=== PATIENT | male | born 1960 | race Caucasian/White ===

== ENCOUNTER → 2020-08-28 | Outpatient (CLI) | payer OTHER | LOC: RAD 13:02 | PROVIDERS: ATTEND Family Medicine | DX: M17.12 Unilateral primary osteoarthritis, left knee (principal) ==

== ENCOUNTER → 2020-11-19 | Outpatient (CLI) | payer OTHER ==
[~2020-11-19] MED LIST: ALIVE ONCE DAI1 EACH PO; ASA81BEC PO; CELEXA10 MG PO; CULTURELLE PRO1 EACH PO; GINGER500 MG PO; LISINOPRIL20 MG PO; MELATONIN10 M3 PO; MOVE FREE ULTR1 EAC1 PO; OMEGA 3 500 SO1 EACH PO; VITAMIN C500 M1 PO; ZOCOR 20 MG TAB20 M1 PO; [UNRECOGNIZED DRUG - OTHER] PO
[2020-11-19 12:40] LABS: URINE BILIRUBIN NEGATIVE (Negative); URINE BLOOD NEGATIVE (Negative); URINE CLARITY CLEAR; URINE COLOR YELLOW; URINE GLUCOSE-RANDOM* NEGATIVE (Negative); URINE KETONES NEGATIVE (Negative); URINE LEUKOCYTES-REFLEX TRACE (Negative); URINE NITRITE-REFLEX NEGATIVE (Negative); URINE PROTEIN (DIPSTICK) NEGATIVE (Negative); URINE SPECIFIC GRAVITY 1.015 (1.005-1.035)
[2020-11-19 12:43] LABS: HEMATOCRIT 45.7 % (42.0-52.0); MCH 31.6 pg (26.0-34.0); MCHC 32.8 g/dL (28.0-37.0); MCV 96.2 fL (80.0-100.0); RBC 4.75 mil/uL (4.50-6.00); RDW 12.5 % (10.5-14.5); WBC 5.3 thou/uL (4.0-11.0)
[2020-11-19 12:45] LABS: ALBUMIN 4.5 g/dL (3.4-5.0); CALCIUM 9.3 mg/dL (8.5-10.1); POTASSIUM 3.9 mmol/L (3.5-5.1)
[2020-11-19 12:49] LABS: PROTIME 10.4 Seconds (9.3-11.4)
--- NOTE | 2020-11-19 13:53 | EKG ---
[place] [address] [facility] [place] [address] ELECTROCARDIOGRAM REPORT Name: CLARITA BALL Room #: DARELL Lamas#: [id number] Admission: 11/19/20 Attend Phys: Dawson Aguero MD Discharge: Date of : 62 Report #: [id number] [facility] Test Date: 2020-11-19 Test Time: 12:34:00 Pat Name: CLARITA BALL Department: Room: Gender: Paint Specialist: CYNDI : 1960 Requested By: Dawson Aguero Order Number: [id number] MD: Milton Bush Measurements Intervals [place] Rate: 85 P: 51 LA: 167 QRS: -26 QRSD: 96 T: 67 QT: 366 QTc: 436 Interpretive Statements Sinus rhythm Borderline left axis deviation Abnormal R-wave progression, early transition No previous ECG available for comparison Electronically Signed On 11-19-2020 13:52:55 [employer] by Milton Bush [email or web address] <ELECTRONICALLY SIGNED> By: Milton Bush MD, [facility] 11/19/20 1352 1234 1234 Milton Bush MD, FACC /EPI
== END ==
LOC: LAB 07:24
PROVIDERS: ATTEND Orthopaedic Surgery
DX: Z01.812 Encounter for preprocedural laboratory examination (principal); Z20.822 Contact with and (suspected) exposure to COVID-19; I49.9 Cardiac arrhythmia, unspecified; I44.4 Left anterior fascicular block

== ENCOUNTER 2020-11-25 07:19 | Inpatient (IN) | payer OTHER ==
[~2020-11-25] VITALS: Ht 175.3 cm; Wt 80.7 kg
--- NOTE | ~2020-11-25 | D ---
[facility] [place] [address] DISCHARGE SUMMARY Name: CLARITA BALL Room #: 442-P [facility] IN M.R.#: [id number] Admission: 11/25/20 Attend Phys: Dawson Aguero MD Discharge: Date of : 62 Report #: [id number] THIS REPORT FOR: cc: Avi Brunner James A. DO Clymer, David J. MD ~ DATE OF SERVICE: 11/27/2020 FINAL DIAGNOSIS: End-stage degenerative arthritis, left knee. OPERATION PROCEDURES: Left total knee arthroplasty. HISTORY OF PRESENT ILLNESS: This fit and generally active 60-year-old gentleman presents with progressive severe knee pain. Clinical exam and x-rays confirm end-stage degenerative arthritis of the left knee. He has elected to go ahead with total knee replacement. HOSPITAL COURSE: The patient was admitted and taken to the operating room and underwent left total knee replacement. He tolerated this quite nicely. Postoperatively, his pain was well controlled with IV analgesics and then oral analgesics. He was able to resume a regular diet without difficulty. He was started on anticoagulation regimen. He was started on physical therapy and has made a good initial progress. He is comfortable up to a chair and is walking with a walker and will work with therapy again today for additional ambulation and steps. He was initially mildly hypotensive and tachycardic. His blood pressure medications have been held. He is still a bit tachycardic, but his blood pressure is normal. He is completely asymptomatic in this regard. His hemoglobin is low at 8.1. The dressing is dry and there was no significant bleeding, so I expect this will stabilize and rebound. The patient notes he is anxious to go home and hoping for discharge today. He will be participating with physical therapy for 2 more sessions today, pending good performance and clearance from physical therapy. I am anticipating discharge home later this afternoon. DISCHARGE MEDICATIONS: Include Xarelto 10 mg daily, hydrocodone 10 mg q.4-6 hours p.r.n. for pain, lisinopril 20 mg b.i.d., Celexa 10 mg at bedtime, Zocor 20 mg at bedtime, vitamin C 500 mg daily, multivitamins once daily, melatonin 10 mg at bedtime. He is instructed to call me if there are any problems or questions. He will continue with the gentle activity program at home as instructed by physical therapy. I will plan to see him back in my office in 1 week and we will begin outpatient therapy at that time. By: 0842 [id number] Dawson Aguero MD /nt
[2020-11-25 08:13] VITALS: BP 151/93
[2020-11-25 12:54] VITALS: BP 98/67
[2020-11-25 12:55] VITALS: BP 98/67
--- NOTE | 2020-11-25 14:53 | NUR ---
PT CARE ASSUMED AT 1240 FROM THE OR. A&Ox4. POST OP VITALS STABLE. PT/OT/RT ON BOARD. ON BEDREST UNTIL PT CAN SEE PT DUE TO FEMORAL BLOCK. IV PATENT WITH NO REDNESS OR EDEMA, FLUIDS INFUSING. HEMOVAC L.KNEE DRAINING WELL. INES DRESSING DRY AND INTACT. ICE PACK IN PLACE. TEDHOSES ON. PT HAS NOT VOIDED YET. ADMISSION COMPLEETED. FALL PROTOCOL IN PLACE. PT EXPERIENCED AN EPISODE OF NAUSEA NO VOMITTING, ZOFRAN GIVEN AND COOL WASHCLOTH APPLIED TO FORHEAD. NAUSEA RESOLVED. TOLERTED CLEAR LIQUIDS AND ADVANCED TO HEAR HEALTHY DIET. CALL LIGHT IN REACH. WILL CONTINUE TO MONITOR.
[2020-11-25 15:27] VITALS: BP 91/53
[2020-11-25 19:08] VITALS: BP 93/62
--- NOTE | 2020-11-26 04:00 | NUR ---
ASSESSMENT COMPLETED.PT LEFT KNEE WITH INES DRSG INTACT, ICE GODFREY APPLIED. PT UNABLE TO VOID THRO NIGHT. BLADDER SCAN AT 0500 WITH A RESIDUAL OF GREATER THAN 900. INDWELLING CATHETER PLACED-IMMEDIATE 900 CC OBTAINED. BP REMAINS ON THE SOFTER SIDE. PT IS ASYMPTOMATIC. DENIES NAUSEA OR VOMITING.CALLS WITH NEEDS.
[2020-11-26 04:18] VITALS: BP 86/53
[2020-11-26 04:31] LABS: CALCIUM 7.5 mg/dL (8.5-10.1); CREATININE 1.5 mg/dL (0.7-1.3); MAGNESIUM 1.9 mg/dL (1.8-2.4); POTASSIUM 4.6 mmol/L (3.5-5.1)
[2020-11-26 05:21] LABS: ABSOLUTE NEUTROPHILS 9.3 thou/uL (1.4-8.2); BASOPHILS 0.1 % (0.0-2.0); HEMATOCRIT 30.7 % (42.0-52.0); HEMOGLOBIN 10.3 gm/dL (14.0-18.0); LYMPHOCYTES 7.6 % (24.0-44.0); MCH 32.5 pg (26.0-34.0); MCHC 33.5 g/dL (28.0-37.0); MCV 97.2 fL (80.0-100.0); MONOCYTES 8.2 % (1.0-8.0); PLATELET COUNT 202 thou/uL (150-400); POLYS 84.1 % (36.0-66.0); RBC 3.16 mil/uL (4.50-6.00); RDW 12.5 % (10.5-14.5)
--- NOTE | 2020-11-26 08:10 | O ---
[facility] [place] [address] OPERATIVE REPORT Name: CLARITA BALL Room #: 442-P [facility] IN M.R.#: [id number] Admission: 11/25/20 Attend Phys: Dawson Aguero MD Discharge: Date of : 62 Report #: [id number] THIS REPORT FOR: cc: Avi Brunner James A. DO Clymer, David J. MD ~ DATE OF SERVICE: 11/25/2020 PREOPERATIVE DIAGNOSIS: End-stage degenerative arthritis, left knee. POSTOPERATIVE DIAGNOSIS: End-stage degenerative arthritis, left knee. PROCEDURE: Left total knee arthroplasty. SURGEON: Dawson Aguero M.D. INDICATIONS: This 60-year-old gentleman presents with chronic progressive left knee pain. His history, clinical exam, x-rays and MRI study revealed moderate degenerative change, particularly in the medial compartment with significant damage to the medial meniscus as well as an area of osteochondral bone infarct. We have discussed various treatment measures. He feels he is not able to function and work effectively and his knee symptoms are limiting both his daily activities and work. He has difficulty with steps, kneeling or squatting or any prolonged walking. He feels his symptoms are becoming worse with time. He has elected therefore to go ahead with left total knee replacement. DESCRIPTION OF PROCEDURE: The patient was taken to the operating room where he was placed under general anesthesia. Prophylactic intravenous antibiotics were administered. The left knee and leg were meticulously prepped and draped and a thigh tourniquet inflated to 300 mmHg. An anterior longitudinal skin incision was made. The medial retinaculum was opened and the patella reflected laterally. Rather severe degenerative change of the medial compartment and moderate degenerative change at the patella/lateral compartment were noted. The [employer] and [employer] knee system was utilized. Intramedullary guides were used on both the femur and the tibia. The femur seemed best suited for a size 5 press fit femoral component. The tibial side was also best suited for a size 5 tibial component. The patellar surface was resected and a 35 mm patellar button seemed to fit nicely. Appropriate anchor holes were created. A trial reduction was performed and the knee seemed best suited for a 9 mm polyethylene insert. With the trial components in place, the knee demonstrated full knee extension, excellent flexion and satisfactory stability. The patella seemed to track nicely and appears to be stable. The trial components were removed. The surfaces were thoroughly irrigated and dried. The intramedullary canal was blocked with a bone block on both the [address] [address] OPERATIVE REPORT Name: CLARITA BALL Room #: 442-P [facility] IN .R.#: [id number] Admission: 11/25/20 Attend Phys: Dawson Aguero MD Discharge: Date of : 62 Report #: [id number] femoral and tibial sides. Methyl methacrylate cement was mixed and injected into the porous surface of the proximal tibia. The [employer] size 5 tibial baseplate was then inserted. It was impacted into position and seated nicely and appeared to be secure. Excess cement from around its margin was removed. A 9 mm cruciate retaining polyethylene insert was then applied. This was snapped into position and seated nicely and appeared to be secure. The size 5 left press fit femoral component was then impacted on to the distal femur. It seated nicely and appeared to be secure. A 35 mm patellar button was cemented into place using cement and appropriate anchor holes. It was secured with a patellar clamp until the cement had fully hardened. All excess cement was removed from around its margin. Once the cement was firm, range of motion, alignment and stability were once again assessed and felt to be satisfactory. The patella appeared to track nicely. The knee demonstrates full knee extension and flexion to about 135 degrees. At this point, the knee was further copiously irrigated. A single Hemovac was left in the wound exiting through a separate stab incision. The tourniquet was deflated after a total tourniquet time of 50 minutes. Good hemostasis was confirmed. The fascia was closed with multiple #1 Vicryl sutures. The deeper tissues and subcutaneous tissues were closed with 0 Monocryl. The skin was closed with skin afsaneh. A sterile dressing was applied. The patient was awakened and returned to the recovery room in good condition. <ELECTRONICALLY SIGNED> By: Dawson Aguero MD 11/26/20 0810 1148 1217 Dawson Aguero MD /nt
[2020-11-26 08:16] VITALS: BP 89/57
[2020-11-26 15:11] VITALS: BP 89/57
--- NOTE | 2020-11-26 15:13 | NUR ---
Case opened to follow for dc planning. Pt is s/p TKR and working with therapy. Pain control has been an issued today. Likely dc tomorrow with plans for outpt therapy near his home in [facility]. The pt lives with his and children. He has five steps to enter his home. He will need a FWW at dc and is agreeable to using [facility]. Their liason will deliever a FWW to the pt's room in the am. Ortho to leave a script. Cm role introduced at bedside. Pt to coordinate his outpt therapy per Ortho. Will follow.
[2020-11-26 16:59] VITALS: BP 132/73
[2020-11-26 19:30] VITALS: BP 122/65
--- NOTE | 2020-11-27 02:49 | NUR ---
ALERT AND ORIENTED. INES DRSG TO LEFT KNEE. PT DENIES PAIN. ABLE TO VOID PER URINAL.DENIES NAY N/V. CONTINUES ON IV FLUIDS. NO FURTHER CONCERNS.
[2020-11-27 04:10] VITALS: BP 141/76
[2020-11-27 05:11] LABS: HEMATOCRIT 24.1 % (42.0-52.0); MCH 32.6 pg (26.0-34.0); MCHC 33.7 g/dL (28.0-37.0); MCV 96.6 fL (80.0-100.0); RBC 2.49 mil/uL (4.50-6.00); RDW 12.2 % (10.5-14.5); WBC 9.5 thou/uL (4.0-11.0)
[2020-11-27 05:29] LABS: HEMOGLOBIN 8.1 gm/dL (14.0-18.0)
[2020-11-27 07:40] VITALS: BP 128/77
[2020-11-27] MEDS ORDERED: XARELTO10 MG PO (08:29)
[2020-11-27] MEDS ORDERED: NORCO 10-325 T1 EACH PO (08:30)
--- NOTE | 2020-11-27 10:14 | NUR ---
DC home today with outpt therapy. FWW issued to pt this morning per [facility] liason.
[2020-11-27 11:50] VITALS: BP 89/57
[2020-11-27 11:52] VITALS: BP 89/57
[2020-11-27 11:57] VITALS: BP 89/57
--- NOTE | 2020-11-27 12:18 | NUR ---
DISCHARGE PAPERS REVIEWED WITH PATIENT SIGNED AND COPY IN CHART. IV ACSESS DCD. ALL BELONGINGS PACKED AND SENT WITH PATIENT . WALKER DELIEVERED TO BE SENT WITH PATIENT. PT W/O PAIN OR RESP DISTRESS. ON WAY TO CONSULTANT IN ERGONOMICS AND SAFETY PATIENT.
[2020-11-27 14:50] VITALS: BP 89/57
== END 2020-11-27 18:26 | disposition home or self-care (01) | DRG 470 ==
LOC: TBA 07:19 → 4S 07:19 → PRE 10:19 → 4S 12:46 → PRE 13:23 → 4S 11-27 18:26
PROVIDERS: Nurse Practitioner; ADMIT Orthopaedic Surgery; ATTEND Orthopaedic Surgery
PROC: 0SRD0J9 Replacement of Left Knee Joint with Synthetic Substitute, Cemented, Open Approach (ICD-10-PCS; principal; 2020-11-25)
PROC: 3E0T3BZ Introduction of Anesthetic Agent into Peripheral Nerves and Plexi, Percutaneous Approach (ICD-10-PCS; 2020-11-25)
DX: M17.12 Unilateral primary osteoarthritis, left knee (principal); N17.9 Acute kidney failure, unspecified; I10 Essential (primary) hypertension; F32.9 Major depressive disorder, single episode, unspecified; D64.9 Anemia, unspecified; E78.5 Hyperlipidemia, unspecified
CPT/HCPCS: 10102; 50010; 50101; 50415; 50954; 51130; 51225; 51412; 56525; 57095; 57104; 57180; 58449; 62110; 62900; 64039; 70005